=== PATIENT | male | born 1965 | race Caucasian/White ===

== ENCOUNTER → 2017-04-14 | Day surgery (SDC) | payer BC ==
[~2017-04-14] MED LIST: BUPIVACAINE HCL PF 0.75% 30 ML VIAL ONE; LACTATED RINGER'S 1000 ML INJ 1,000 ML ONE; LIDOCAINE 1.5%/EPINEPHrine 1:200,000 PF SOLN 30 ML AMP ONE; MIDAZOLAM HCL 5 MG/ML VIAL (1 ML) ONE; ONDANSETRON HCL 4 MG/2 ML VIAL IV PUSH ONE; PROPOFOL 200 MG/20 ML AMP IV ONE; ceFAZolin INJ 1,000 MG VIAL ONE
--- NOTE | 2017-04-14 17:13 | PD.OP ---
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 right Achilles debridement and repair 2. right calcaneus Isabelle deformity excision Anesthesia: general Surgeon: Narayan Stokes Lan/Wan Engineer(s): Hospital staff Resident Surgeon: yanique Operation and Findings: 52-year-old male with history of chronic right Achilles insertional tendinosis. He is status post limited calcaneus exostosis excision. His pain has become debilitating and Affecting his activity daily living. He now presents for right Achilles debridement with repair and excision of Isabelle exostosis. After all potential complication risks as well as benefits of the above- mentioned procedure were discussed at length with the patient. Informed consent was obtained. The operative extremity, the right, was then confirmed with the patient the operating surgeon, anesthesia and nursing staff. The patient was transferred to the operative table and placed in a prone position. All bony landmark in prominence were well padded. A nonsterile tourniquet was placed in the right upper extremity. The lower extremity was sterilely prepped and draped in sterile fashion. The extremity was elevated and exsanguinated using an Esmarch and tourniquet was inflated to 250 millimeter of mercury. After all bony and soft tissue landmarks were identified. A longitudinal incision was made carefully over the dorsal aspect of the Achilles tendon. Careful dissection taken was taken down to the paratenon while avoiding injury to the sural nerve. The Achilles tendon was bisected elevated off the calcaneus and dettached carefully. There, i found a very large Isabelle exostosis. The distal insertion of the Achilles appeared calcified and nonviable. The tendon was debrided back to healthy looking tissue. The tendon was then protected and using a saw and under fluoroscopy the isabelle was excised. There was also posterior calcaneus exostosis which was which were removed with a rongeur and that posterior surface was smoothed down with a rasp. At that time, attention was turned to placement of 2 x4.0 suture anchors. The anchors where drilled and tapped prior to insertion. Sutures were then passed and either half of the tendon and held down with adequate tension with the foot and plantar flexion. Two additional knotless anchors were placed just distal. One limb from each of the previous sutures anchors were used, tensioned and tightened down well. This was a watertight repair and there was adequate tension in the suture and good repair of the Achilles tendon. The rest of the Achilles tendon was repaired with 0 Vicryl. The tourniquet was deflated. The wound was thoroughly irrigated and closed with 3-0 Vicryl and 2-0 nylon. The patient was placed in a short-leg splint with the leg maintained in plantar flexion. There were no complications. Narayan Stokes Jr., MD Apr 14, 2017 17:13
== END | disposition home or self-care (01) ==
LOC: ESDC 13:07
PROVIDERS: ATTEND Orthopaedic Surgery
DX: M76.61 Achilles tendinitis, right leg (principal); M92.61 Juvenile osteochondrosis of tarsus, right ankle
CPT/HCPCS: 01472; 01480; 27650; 28120; 64450; 73650; 76000; C1713; J0690; J2250; J2405; J3010; J7120

== ENCOUNTER → 2017-08-17 | Day surgery (SDC) | payer BC ==
[~2017-08-17] MED LIST changes: +ACETAMINOPHEN 1000 MG/100 ML 100 ML IV ONE; -BUPIVACAINE HCL PF 0.75% 30 ML VIAL ONE; +BUPIVACAINE/EPINEPHRINE 0.25% PF 10 ML VIAL ONE; +KETOROLAC TROMETHAMINE 30 MG/ML (IVP) VIAL IV PUSH ONE; +LIDOCAINE 1%/EPINEPHrine 1:100,000 SOLN 30 ML VIAL ONE; -LIDOCAINE 1.5%/EPINEPHrine 1:200,000 PF SOLN 30 ML AMP ONE; +MIDAZOLAM HCL 2 MG/2 ML VIAL ONE; -MIDAZOLAM HCL 5 MG/ML VIAL (1 ML) ONE; +SODIUM CHLORIDE 0.9% 250 ML ADDBAG IV ONE; +VANCOMYCIN HCL 1000 MG VIAL ONE
--- NOTE | 2017-08-17 21:14 | MP ---
cc: José Miguel Sparks MD DATE OF OPERATION: 08/17/2017 PROCEDURE: Right inguinal hernia repair with mesh. PREOPERATIVE DIAGNOSIS: Reducible symptomatic right inguinal hernia. POSTOPERATIVE DIAGNOSIS: Indirect reducible right inguinal hernia. ANESTHESIA: LMA. SURGEON: José Miguel Sparks MD ESTIMATED BLOOD LOSS: 10 mL FLUIDS: 850 mL crystalloid. COMPLICATIONS: None. DRAINS: None. SPECIMENS: None. PROCEDURE IN DETAIL: The patient was seen in the holding area and the right groin marked by the undersigned and confirmed by the patient. He was taken to the operating room, and placed on the operating table in the supine position. After laryngeal mask anesthesia was instituted the right groin and genitals were prepped and draped in the field. A timeout was taken confirming the correct patient, site, and procedure to be performed. The skin and subcutaneous tissue was infiltrated with local anesthetic and an incision was made in oblique fashion in the right groin. Dissection was carried down to the external oblique fascia where further subfascial injections were made with local anesthetic. The external oblique fascia was opened in the direction of the fibers and the underlying tissue swept free from the cord structures. The spermatic cord structures were brought up on a Keanu drain. Dissection was carried back to the internal ring. The patient was noted to have an indirect hernia defect. The hernia sac was dissected off of the spermatic cord structures and inverted back into the abdominal cavity. When this was completed, a 3 x 6 inch piece of Atrium ProLite mesh was brought up and placed into the wound. The mesh was fixed to the pubic tubercle with a 2-0 Prolene suture which was then run along the shelving edge of the inguinal ligament to complete the lateral edge of the repair. The mesh was then split longitudinally to allow for egress of the cord structures and then trimmed to size to fit the defect. The mesh was fixed at multiple points with interrupted 2-0 Prolene sutures medially. Care was taken to avoid placing any sutures near the iliohypogastric nerve, which was left in its afognak course with minimal disturbance. When this had been completed, the medial leaf of mesh was brought across the lateral leaf of the mesh and fixed at 2 points with a 2-0 Prolene suture to the inguinal ligament. This minimized the opening in the internal ring to allow for egress of the cord structures, but minimize the risk of recurrence. A single medial suture was placed with 2-0 Prolene suture to further buttress the internal ring. When this was completed and with hemostasis assured, the external oblique fascia was closed with a running 3-0 Vicryl suture after injecting the remaining local anesthetic into the transversalis fascia and subcutaneous tissues. The wound was then closed with interrupted 3-0 Vicryl suture and the skin closed with 5-0 PDS in a running subcuticular fashion. The wound was dressed with Telfa and Tegaderm and the patient was extubated and then taken back to the recovery room in stable condition. Sponge, needle and instrument counts were reported to be correct. The patient tolerated the procedure well. MD ESTRELLA Mae/rt , 08:18 PM , 09:13 PM
== END | disposition home or self-care (01) ==
LOC: ESDC 08:16
PROVIDERS: ATTEND Surgery Trauma Surgery
DX: K40.90 Unilateral inguinal hernia, without obstruction or gangrene, not specified as recurrent (principal)
CPT/HCPCS: 00830; 49505; C1781; J0131; J0690; J1885; J2250; J2405; J3010; J3370; J7120